=== PATIENT | male | born 1970 | race Caucasian/White ===

== ENCOUNTER 2017-03-30 20:25 | Emergency (ER) | payer SELFPAY ==
[~2017-03-30] VITALS: Ht 177.8 cm; Wt 77.1 kg
[2017-03-30 20:25] VITALS: BP 122/78
[2017-03-30] MEDS ORDERED: HYDR-2758 PO (21:21)
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
[2017-03-30] MEDS ORDERED: HYDROcodone/APAP 5/325MG 1 TAB TABLET PO ONE (22:00)
--- NOTE | 2017-03-31 08:29 | RAD ---
EXAM: Left knee, 3 views HISTORY: Left knee pain, twisting injury. COMPARISON: None. FINDINGS: No fractures are identified. Joint spaces are maintained. Alignment is normal. There is a small joint effusion. IMPRESSION: 1. Small joint effusion.
== END 2017-03-30 21:35 | disposition home or self-care (01) ==
LOC: ER 20:25
DX: M25.562 Pain in left knee (principal); F10.10 Alcohol abuse, uncomplicated; Y93.39 Activity, other involving climbing, rappelling and jumping off; Y99.8 Other external cause status; Y92.488 Other paved roadways as the place of occurrence of the external cause
CPT/HCPCS: 73562; 99284

== ENCOUNTER 2018-11-08 20:15 | Emergency (ER) | payer SELFPAY ==
[~2018-11-08] VITALS: Ht 180.3 cm; Wt 77.1 kg
[~2018-11-08 20:15] MED LIST: HYDR-2761 PO
[2018-11-08 21:06] VITALS: BP 133/83
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
[2018-11-08] MEDS ORDERED: AMOXICILLIN/K CLAV 875/125MG TABLET. PO ONE (22:00)
[2018-11-08] MEDS ORDERED: AMOX1TAB61 PO (22:26)
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
[2018-11-08] MEDS ORDERED: KETOROLAC 30 MG/ML VIAL. IM ONE (23:00)
== END 2018-11-08 23:10 | disposition home or self-care (01) ==
LOC: EEVIPCON 20:15 → ER 20:15
DX: S02.2XXA Fracture of nasal bones, initial encounter for closed fracture (principal); S00.531A Contusion of lip, initial encounter; J32.3 Chronic sphenoidal sinusitis; J32.0 Chronic maxillary sinusitis; J32.2 Chronic ethmoidal sinusitis; F17.210 Nicotine dependence, cigarettes, uncomplicated; F10.229 Alcohol dependence with intoxication, unspecified; Y90.9 Presence of alcohol in blood, level not specified; Z59.0 Homelessness; Y08.89XA Assault by other specified means, initial encounter; Y93.89 Activity, other specified; Y92.89 Other specified places as the place of occurrence of the external cause; Y99.8 Other external cause status
CPT/HCPCS: 70450; 70486; 72125; 96372; 99284; J1885

== ENCOUNTER 2019-11-23 13:12 | Emergency (ER) | payer SELFPAY ==
[~2019-11-23] VITALS: Ht 177.8 cm; Wt 81.8 kg
[~2019-11-23 13:12] MED LIST changes: +AMOX1TAB61 PO
[2019-11-23] MEDS ORDERED: MECLIZINE HCL 12.5 MG TABLET. PO STA (13:40)
[2019-11-23 13:44] VITALS: BP 170/97
--- NOTE | 2019-11-23 13:45 | PHYS DOC ---
Past Medical History Past Medical History: No Pertinent History Past Surgical History: No Surgical History Smoking Status: Current Every Day Smoker Alcohol Use: Heavy Drug Use: None Adult General Chief Complaint Chief Complaint: RINGING IN EARS HPI HPI Patient is a 49 year old male who presents with bilateral ear ringing this been ongoing for month. The patient states is progressively getting worse. The patient also been having bilateral ear pain and states the last several days been having balance issues. Denies the room spinning. Denies fevers or chills. Review of Systems Review of Systems Constitutional: Denies fever or chills [] Eyes: Denies change in visual acuity, redness, or eye pain [] HENT: Reports bilateral ear pain. Denies nasal congestion or sore throat [] Respiratory: Denies cough or shortness of breath [] Cardiovascular: No additional information not addressed in HPI [] GI: Denies abdominal pain, nausea, vomiting, bloody stools or diarrhea [] : Denies dysuria or hematuria [] Musculoskeletal: Denies back pain or joint pain [] Integument: Denies rash or skin lesions [] Neurologic: Reports balance issues, and dizziness. Denies headache, focal weakness or sensory changes [] Endocrine: Denies polyuria or polydipsia [] Complete systems were reviewed and found to be within normal limits, except as d ocumented in this note. Current Medications Current Medications Current Medications Medications (Trade) Dose Ordered Sig/Cruz Start Time Stop Time Status Last Admin Dose Admin Meclizine HCl (Antivert) 25 mg 1X STAT 11/23/19 13:40 11/23/19 13:46 DC 11/23/19 13:52 25 MG Allergies Allergies Allergies Coded Allergies Type Severity Reaction Last Updated Verified No Known Drug Allergies 12/22/14 No Physical Exam Physical Exam Constitutional: Well developed, well nourished, no acute distress, non-toxic appearance. [] HENT: Normocephalic, atraumatic, bilateral external ear canal is erythematous with mild edema, oropharynx moist, no oral exudates, nose normal. [] Eyes: PERRLA, EOMI, conjunctiva normal, no discharge. [] Neck: Normal range of motion, no tenderness, supple, no stridor. [] Cardiovascular:Heart rate regular rhythm, no murmur [] Lungs & Thorax: Bilateral breath sounds clear to auscultation [] Skin: Warm, dry, no erythema, no rash. [] Back: No tenderness, no CVA tenderness. [] Extremities: No tenderness, no cyanosis, no clubbing, ROM intact, no edema. [] Neurologic: Alert and oriented X 3, normal motor function, normal sensory function, no focal deficits noted. [] Psychologic: Affect normal, judgement normal, mood normal. [] Current Patient Data Vital Signs Vital Signs Date Time Temp Pulse Resp B/P (MAP) Pulse Ox O2 Delivery O2 Flow Rate FiO2 11/23/19 13:44 98.2 110 20 170/97 (121) 100 Room Air 98.2 Lab Values Laboratory Tests Test 11/23/19 13:55 White Blood Count 5.6 x10^3/uL (4.0-11.0) Red Blood Count 4.08 x10^6/uL (4.30-5.70) L Hemoglobin 14.3 g/dL (13.0-17.5) Hematocrit 41.6 % (39.0-53.0) Mean Corpuscular Volume 102 fL (79-100) H Mean Corpuscular Hemoglobin 35 pg (25-35) Mean Corpuscular Hemoglobin Concent 34 g/dL (31-37) Red Cell Distribution Width 13.3 % (11.5-14.5) Platelet Count 159 x10^3/uL (140-400) Neutrophils (%) (Auto) 69 % (31-73) Lymphocytes (%) (Auto) 18 % (24-48) L Monocytes (%) (Auto) 8 % (0-9) Eosinophils (%) (Auto) 5 % (0-3) H Basophils (%) (Auto) 1 % (0-3) Neutrophils # (Auto) 3.8 x10^3/uL (1.8-7.7) Lymphocytes # (Auto) 1.0 x10^3/uL (1.0-4.8) Monocytes # (Auto) 0.4 x10^3/uL (0.0-1.1) Eosinophils # (Auto) 0.3 x10^3/uL (0.0-0.7) Basophils # (Auto) 0.0 x10^3/uL (0.0-0.2) Sodium Level 138 mmol/L (136-145) Potassium Level 3.7 mmol/L (3.5-5.1) Chloride Level 97 mmol/L (98-107) L Carbon Dioxide Level 29 mmol/L (21-32) Anion Gap 12 (6-14) Blood Urea Nitrogen 5 mg/dL (8-26) L Creatinine 1.0 mg/dL (0.7-1.3) Estimated GFR (Cockcroft-Gault) 79.4 BUN/Creatinine Ratio 5 (6-20) L Glucose Level 153 mg/dL (70-99) H Calcium Level 8.8 mg/dL (8.5-10.1) Magnesium Level 1.7 mg/dL (1.8-2.4) L Total Bilirubin 0.5 mg/dL (0.2-1.0) Aspartate Amino Transferase (AST) 127 U/L (15-37) H Alanine Aminotransferase (ALT) 68 U/L (16-63) H Alkaline Phosphatase 134 U/L (46-116) H Total Protein 8.1 g/dL (6.4-8.2) Albumin 3.7 g/dL (3.4-5.0) Albumin/Globulin Ratio 0.8 (1.0-1.7) L Laboratory Tests 11/23/19 13:55 Laboratory Tests 11/23/19 13:55 EKG EKG [] Radiology/Procedures Radiology/Procedures [] Course & Med Decision Making Course & Med Decision Making Pertinent Labs and Imaging studies reviewed. (See chart for details) Will get CT, give meclizine, and get labs. Labs appear to be at baseline. CT is unremarkable. Will have follow up with ENT. Al Disclaimer Dragon Disclaimer This electronic medical record was generated, in whole or in part, using a voice recognition dictation system. Departure Departure Impression: Primary Impression: Otitis externa of both ears Additional Impression: Bilateral tinnitus Disposition: 01 HOME, SELF-CARE Condition: STABLE Referrals: NO PCP (PCP) ESTER BROOKS MD Patient Instructions: Otitis Externa Additional Instructions: Thank you for visiting [facility]. We appreciate you trusting us with your care. If any additional problems come up don't hesitate to return to visit us. Please follow up with your primary care provider so they can plan additional care if needed and know about the problem that you had. If symptoms worsen come back to the Emergency Department. Any concerning symptoms that start such as chest pain, shortness of air, weakness or numbness on one side of the body, running high fevers or any other concerning symptoms return to the ER. Please follow-up with ENT for tinnitus. Scripts Ciprofloxacin Hcl (CIPROFLOXACIN HCL) 1 Each Droperette 3 DROP AU BID for 10 Days, DROP Prov: NEO LUIS APRN 11/23/19 Problem Qualifiers Primary Impression: Otitis externa of both ears Otitis externa type: unspecified type Chronicity: acute Qualified Codes: H60.503 - Unspecified acute noninfective otitis externa, bilateral NEO LUIS APRN Nov 23, 2019 13:45
[2019-11-23 14:06] LABS: BASO % 1 % (0-3); EOS # 0.3 x10^3/uL (0.0-0.7); EOS % 5 % (0-3); HEMATOCRIT 41.6 % (39.0-53.0); HEMOGLOBIN 14.3 g/dL (13.0-17.5); LYMPH % 18 % (24-48); MEAN CORPUSCULAR HEMOGLOBIN 35 pg (25-35); MEAN CORPUSCULAR HGB CONC 34 g/dL (31-37); MEAN CORPUSCULAR VOLUME 102 fL (79-100); MONO # 0.4 x10^3/uL (0.0-1.1); MONO % 8 % (0-9); NEUT # 3.8 x10^3/uL (1.8-7.7); NEUT % 69 % (31-73); PLATELET COUNT 159 x10^3/uL (140-400); RED BLOOD COUNT 4.08 x10^6/uL (4.30-5.70); RED CELL DISTRIBUTION WIDTH 13.3 % (11.5-14.5); WHITE BLOOD COUNT 5.6 x10^3/uL (4.0-11.0)
[2019-11-23 14:18] LABS: CALCIUM 8.8 mg/dL (8.5-10.1); GFR 79.4; POTASSIUM 3.7 mmol/L (3.5-5.1)
[2019-11-23 14:24] LABS: ALBUMIN 3.7 g/dL (3.4-5.0); ALBUMIN/GLOBULIN RATIO 0.8 (1.0-1.7); MAGNESIUM 1.7 mg/dL (1.8-2.4); TOTAL BILIRUBIN 0.5 mg/dL (0.2-1.0); TOTAL PROTEIN 8.1 g/dL (6.4-8.2)
[2019-11-23] MEDS ORDERED: CIPR1DRO AU (15:47)
--- NOTE | 2019-11-23 15:51 | RAD ---
CT HEAD WO CONTRAST Clinical indications: Dizziness. Ear ringing. COMPARISON: November 08, 2018. Technique: Noncontrast axial cross sectional scanning of the head was performed. PQRS compliance Statement One or more of the following individualized dose reduction techniques were utilized for this study: 1. Automated exposure control 2. Adjustment of the mA and/or kV according to patient size 3. Use of iterative reconstruction technique Findings: No acute intracranial hemorrhage or midline shift or mass-effect or hydrocephalus or extra-axial fluid collection is seen. No focal hypodense area or sulci effacement is seen to indicate an acute infarct or edema radiographically. No skull fracture or pneumocephalus is seen. No opacification of the mastoid sinuses or the middle ear cavities or the paranasal sinuses is seen. The maxillary sinuses are not completely seen in this study. Impression: No acute intracranial abnormality is seen. Electronically signed by: Dain Darden MD (11/23/2019 1:53 PM) [facility]
== END 2019-11-23 15:54 | disposition home or self-care (01) ==
LOC: ER 13:12
DX: H60.503 Unspecified acute noninfective otitis externa, bilateral (principal); H93.13 Tinnitus, bilateral; R42 Dizziness and giddiness; F17.200 Nicotine dependence, unspecified, uncomplicated; F10.10 Alcohol abuse, uncomplicated
CPT/HCPCS: 36415; 70450; 80053; 83735; 85025; 99284; J8597